=== PATIENT | female | born 1945 | race Caucasian/White ===

== ENCOUNTER → 2017-02-28 | Outpatient (CLI) | payer MEDICARE, OTHER ==
--- NOTE | 2017-02-28 17:55 | PCVCIMAG ---
EXAM: AORTOILIAC DUPLEX INDICATION: Palpable abdominal fullness. FINDINGS: AORTA: Suprarenal aorta measures maximum diameter of 2.0 cm. There is not a fusiform infrarenal aortic aneurysm. The infrarenal aorta measures maximum diameter of 2.0 cm. No aortic stenosis. RIGHT COMMON ILIAC ARTERY: Maximum diameter is 1.3 cm. No significant stenosis. RIGHT EXTERNAL ILIAC ARTERY: No significant stenosis. LEFT COMMON ILIAC ARTERY: Maximum diameter is 1.3 cm. No significant stenosis. LEFT EXTERNAL ILIAC ARTERY: No significant stenosis. IMPRESSION: No abdominal aortic aneurysm. No aortoiliac stenosis seen. LOC:[id number]
== END | disposition home or self-care (01) ==
LOC: PCVCCLINIC 12:53
PROVIDERS: ATTEND Internal Medicine Cardiovascular Disease
DX: I25.10 Atherosclerotic heart disease of native coronary artery without angina pectoris (principal); E78.5 Hyperlipidemia, unspecified; R09.89 Other specified symptoms and signs involving the circulatory and respiratory systems; I10 Essential (primary) hypertension; Z96.652 Presence of left artificial knee joint; Z88.0 Allergy status to penicillin; Z79.82 Long term (current) use of aspirin
CPT/HCPCS: 80061; 93005; 93978; G0463

== ENCOUNTER → 2017-03-11 | Outpatient (CLI) | payer MEDICARE, OTHER ==
[~2017-03-11] MED LIST: AMINOPHYLLINE 250 MG/10 ML VIAL. ONE; REGADENOSON 0.4 MG/5 ML DISP.SYRIN. IV ONE
--- NOTE | 2017-03-14 15:07 | PCVCIMAG ---
APPROVED REPORT Study performed: 03/11/2017 08:29:45 EXAM: Comprehensive 2D, Doppler, and color-flow Echocardiogram Patient Location: Echo lab BSA: 1.62 HR: 64 bpmBP: 128/84 mmHg Rhythm: NSR Other Information Study Quality: Good Risk Factors: Cardiac Risk Factors: HTN, Hyperlipidemia,elevated coronary Ca+ score Indications Abnormal ECG Chest Pressure CAD Hypertension/HDD 2D Dimensions IVSd: 10.13 (7-11mm)LVOT Diam: 20.37 (18-24mm) LVDd: 40.02 mm PWd: 9.53 (7-11mm)Ascending Ao: 29.64 (22-36mm) LVDs: 21.03 (25-40mm) Left Atrium: 38.31 (27-40mm) Aortic Root: 26.67 mm LV Single Plane 4CH: 57.81 % LV Single Plane 2CH: 51.14 %Phan's LVEF: 54.47 % Biplane EF: 54.1 % Volumes Left Atrial Volume (Systole) Single Plane 4CH: 55.47 mLSingle Plane 2CH: 59.23 mL Biplane LA Volume: 62.00 mLLA ESV Index: 38.00 mL/m2 Aortic Valve AoV Peak Justin.: 1.27 m/s AO Peak Gr.: 6.49 mmHgLVOT Max P.55 mmHg LVOT Max V: 0.93 m/s JUMA Vmax: 2.38 cm2 Mitral Valve E/A Ratio: 1.1 MV Decel. Time: 153.33 ms MV E Max Justin.: 0.66 m/s MV A Justin.: 0.59 m/s TDI E/Lateral E': 11.00E/Medial E': 8.25 Medial E' Justin.: 0.08 m/s Lateral E' Justin.: 0.06 m/s Pulmonary Valve PV Peak Justin.: 1.09 m/sPV Peak Gr.: 4.71 mmHg Pulmonary Vein P Vein S: 0.66 m/sP Vein A: 0.34 m/s P Vein D: 0.46 m/sP Vein A Dur.: 110.7 msec P Vein S/D Ratio: 1.43 Tricuspid Valve TR Peak Justin.: 2.43 m/s TR Peak Gr.: 23.65 mmHg TV Vmax: 0.41 m/sPA Pressure: 31.00 mmHg Left Ventricle The left ventricle is normal size. There is normal LV segmental wall motion. There is normal left ventricular wall thickness. Left ventricular systolic function is normal. The left ventricular ejection fraction is within the normal range. LVEF is 55%. The left ventricular diastolic function is normal. Right Ventricle The right ventricle is normal size. The right ventricular systolic function is normal. Atria Left atrium is mildly dilated. The right atrium size is normal. Aortic Valve The aortic valve is normal in structure. No aortic regurgitation is present. There is no aortic valvular stenosis. Mitral Valve The mitral valve is normal in structure. Trace to mild mitral regurgitation. No evidence of mitral valve stenosis. Tricuspid Valve The tricuspid valve is normal in structure. Mild tricuspid regurgitation with a PA pressure of 31mmHg. Pulmonic Valve The pulmonary valve is normal in structure. There is no pulmonic valvular regurgitation. Great Vessels The aortic root is normal in size. The ascending aorta is normal in size. IVC is normal in size and collapses with >50% inspiration Pericardium There is no pericardial effusion. There is no pleural effusion. <Conclusion> Left ventricular systolic function is normal. The left ventricular ejection fraction is within the normal range. LVEF is 55%. The left ventricular diastolic function is normal. The right ventricle is normal size. Left atrium is mildly dilated. The aortic valve is normal in structure. Trace to mild mitral regurgitation. Mild tricuspid regurgitation with a PA pressure of 31mmHg. There is no pericardial effusion.
--- NOTE | 2017-03-14 15:08 | PCVCIMAG ---
APPROVED REPORT Exam: Nuclear Stress Test Indication: Elevated CA Score Patient Location: Out Patient Stress Nurse: Janay Chopra RN, Tawanna Villalpando RN GA Tech:Daniel Farmer NMTCB Ht: 5 ft 1 in Wt: 140 lbs BSA: 1.62 m2 HR: 68 bpm BP: 173/74 mmHg BMI: 26.4 Rhythm: SR Medical History Medical History: Age, Hyperlipidemia, HTN Medications: Atorvastatin, ASA, Synthroid, Cozaar, Prilosec Allergies: Cephalexin, PCN Exercise History: Physically active NM EXAM: Myocardial Perfusion REST/STRESS Imaging Protocol: Rest Tc-99m/Stress Tc-99m 1 day Resting Data Rest SPECT myocardial perfusion imaging was performed in supine position 45 minutes following the intravenous injection of 11.1 mCi of Tc-99m Sestamibi. Time of rest injection: 0930 Date: 03/11/2017 Pharmacologic Stress Pharmacologic stress test was performed by injecting Regadenoson 0.4 mg IV push followed by the intravenous injection of 33.9 mCi of Tc-99m Sestamibi. Time of stress injection: 1100 Date: 03/11/2017 The images were gated to evaluate regional wall motion and calculate left ventricular ejection fraction. Study Quality Study: Good Study Data Post stress, the left ventricular ejection was 68%.. SSS: 1 SRS: 1 SDS: 0 TID = 0.82. Perfusion No evidence of stress induced ischemia or prior myocardial infarction. Wall Motion Normal left ventricular size and function with no regional wall motion abnormalities. Nuclear Conclusion No evidence of stress induced ischemia or prior myocardial infarction. Normal left ventricular size and function with no regional wall motion abnormalities. Post stress, the left ventricular ejection was 68%.. No prior study available for comparison. Interpreted by: Pelon Crews MD Electronically Approved: 03/11/2017 14:27:56 Stress Test Details Stress Test: Pharmacologic stress testing performed using 0.4 mg of regadenoson per 5 mL given IV over 10 seconds. Reason for pharmacologic stress test: physical limitation. Reversal agent Aminophyline 100 mg, given intravenously for nausea, vomiting. HR Resting HR: 68 bpmMax Heart Rate (APMHR): 148 bpm Max HR Achieved: 108 bpmTarget HR (85% APMHR): 125 bpm % of APMHR: 72 Recovery HR: 93 bpm BP Resting BP: 173/74 mmHg Max BP: 120/58 mmHg ECG Resting ECG: Sinus Rhythm Stress ECG: Sinus Tachycardia ST Change: Mild downsloping ST depression Maximum ST Deviation: 1 mm Arrhythmia: None Recovery ECG: Sinus Rhythm Clinical Reason for Termination: Completed protocol Stress Symptoms: Dyspnea Exercise duration: min 55 sec Exercise capacity: 1.6 METs Reversed in the post recovery period for N/V with resolution of symptoms. Stress ECG Conclusion equiv ekg changes non diagnostic <Conclusion> equiv ekg changes non diagnostic
== END | disposition home or self-care (01) ==
LOC: PCVCIMAG 08:18
PROVIDERS: ATTEND Internal Medicine Cardiovascular Disease
DX: I08.1 Rheumatic disorders of both mitral and tricuspid valves (principal); I25.10 Atherosclerotic heart disease of native coronary artery without angina pectoris; I10 Essential (primary) hypertension; R94.31 Abnormal electrocardiogram [ECG] [EKG]; R93.1 Abnormal findings on diagnostic imaging of heart and coronary circulation; E78.5 Hyperlipidemia, unspecified; K52.9 Noninfective gastroenteritis and colitis, unspecified
CPT/HCPCS: 78452; 93017; 93306; A9500; J0280; J2785

== ENCOUNTER → 2018-02-28 | Outpatient (CLI) | payer MEDICARE, OTHER | END | disposition home or self-care (01) | LOC: PCVCCLINIC 11:07 | PROVIDERS: ATTEND Internal Medicine Cardiovascular Disease | DX: I10 Essential (primary) hypertension (principal); R93.1 Abnormal findings on diagnostic imaging of heart and coronary circulation; E78.5 Hyperlipidemia, unspecified; Z79.82 Long term (current) use of aspirin | CPT/HCPCS: 80061; 93005; G0463 ==

== ENCOUNTER → 2019-02-27 | Outpatient (CLI) | payer MEDICARE | END | disposition home or self-care (01) | LOC: PCVCCLINIC 10:20 | PROVIDERS: ATTEND Internal Medicine Cardiovascular Disease | DX: I10 Essential (primary) hypertension (principal); E78.5 Hyperlipidemia, unspecified; R09.89 Other specified symptoms and signs involving the circulatory and respiratory systems; M81.0 Age-related osteoporosis without current pathological fracture; R93.1 Abnormal findings on diagnostic imaging of heart and coronary circulation; Z79.82 Long term (current) use of aspirin; Z88.8 Allergy status to other drugs, medicaments and biological substances | CPT/HCPCS: 93005; G0463 ==